=== PATIENT | male | born 1960 | race Caucasian/White ===

== ENCOUNTER → 2020-12-22 06:58 | Outpatient (CLI) | payer BC, SELFPAY ==
[2020-12-22 19:24] LABS: SARS-CoV-2 RNA PCR Negative
== END ==
PROVIDERS: PCP Internal Medicine; Visit Provider Internal Medicine
DX: R68.89 Other general symptoms and signs (principal); Z20.822 Contact with and (suspected) exposure to COVID-19
CPT/HCPCS: C9803; U0003; U0005

== ENCOUNTER 2021-02-24 08:18 | Outpatient (CLI) | payer BC, SELFPAY ==
--- NOTE | 2021-02-24 08:30 | ECG_ITS ---
Measurements Intervals Johnson Rate: 66 P: 40 TN: 176 QRS: 6 QRSD: 101 T: 16 QT: 373 QTc: 393 Interpretive Statements SINUS RHYTHM BORDERLINE R WAVE PROGRESSION, ANTERIOR LEADS BASELINE ARTIFACT- I, II, III, AVR, AVL BORDERLINE ECG Electronically Signed On 02-24-2021 8:43:42 CDT by Evin Forrester D.O.
[2021-02-24 08:49] LABS: Anion Gap 7 mmol/L (8-16); Blood Urea Nitrogen 21 mg/dL (9-20); Calcium 9.9 mg/dL (8.4-10.2); Carbon Dioxide 32 mmol/L (22-30); Chloride 98 mmol/L (98-107); Estimated Glomerular Filt Rate > 60; Glucose 110 mg/dL (75-110); Potassium 4.4 mmol/L (3.4-5.0); Sodium 137 mmol/L (137-145)
== END 2021-02-24 08:19 | disposition home or self-care (01) ==
LOC: ANHSURGERY 08:21
PROVIDERS: Anesthesiology; PCP Internal Medicine; Visit Provider Orthopaedic Surgery
DX: I10 Essential (primary) hypertension (principal); Z01.818 Encounter for other preprocedural examination; Z79.899 Other long term (current) drug therapy; R94.31 Abnormal electrocardiogram [ECG] [EKG]
CPT/HCPCS: 36415; 80048; 93005

== ENCOUNTER 2021-02-28 01:05 | Day surgery (SDC) | payer BC, SELFPAY ==
[2021-02-23 15:33] VITALS: BMI 31.1
--- NOTE | 2021-02-27 10:15 | WPDANESEPPF ---
Anes - Initial Pre Proc Eval Procedure: Operation Date: 02/28/21 10:30 Proposed Procedures p Left Shoulder Arthroscopic Rotator Cuff Repair, Proceed as Indicated - Eran Tello MD Date/Time: 02/27/21 10:15 Surgeon: Eran Tello MD Pre Op Diagnosis: left rotator cuff tear Patient Data Age: 60 Gender: M Height: 1.83 m Weight: 104.33 kg Allergies Allergy/AdvReac Type Severity Reaction Status Date / Time iodine Allergy Mild Rash Verified 02/28/21 08:54 Home Medications Medication Instructions Recorded Confirmed Type hydrochlorothiazide 25 mg tablet 25 mg PO DAILY 09/12/20 02/28/21 History olmesartan 40 mg tablet 40 mg PO DAILY 09/12/20 02/28/21 History Patient hx anesthesia problems: none Family hx anesthesia problems: none PMFSH Past Medical History Medical History (Updated 02/27/21 @ 10:15 by Efrain Youssef DO) Hypertension ISSAC (obstructive sleep apnea) CPAP Surgical History Surgical History (Updated 09/12/20 @ 15:18 by Elena Washington) H/O skin graft (~1981) RT leg History of appendectomy (~1975) History of back surgery (~1981) History of shoulder surgery (~1979) LT History of shoulder surgery (~1984) RT History of tympanoplasty (~1997) Family History Family History (Updated 09/12/20 @ 15:20 by Elena Washington) Father Arthritis Malignant neoplasm of prostate Social History Social History (Updated 09/12/20 @ 15:20 by Elena Washington) Years smoked: 20 Smoking status: Never smoker Alcohol intake: current Substance use: never Last use: 1994 Living arrangements: with family Spiritual care concerns: No Anes - Eval Final PreProcedure Day of Procedure 02/27/21 10:15 Patient weight: obese Heart: regular rate and rhythm Lungs: clear to auscultation and normal air movement Airway: Mallampati scale class III Neurological: alert and oriented Last oral intake: >/= 8 hours ASA classification: III Emergent: no Anesthetic plan: proceed Anesthesia type and monitoring: general ETT and standard monitoring Informed Consent: The patient's anesthetic plan and its attendant risks and benefits were discussed with the patient/family/POA. Questions were solicited and answers provided to the satisfaction of the patient/family/POA.
--- NOTE | 2021-02-27 10:16 | WPDANESPNB ---
Anes - Peripheral Nerve Block Date/Time: 02/27/21 10:16 I have discussed with the patient/family/POA the placement of a peripheral nerve block for post-operative pain management, including associated risks, benefits, complications, and side effects. Alternative methods of post-operative analgesia were detailed. Questions were solicited and answers provided to the satisfaction of the patient/family/POA. Time-Out: A pre-procedural Time-Out was completed immediately before starting the procedure and confirmed: Patient Identification, Site, Procedure, Patient Position and the Availability of Requisite Equipment. Clinical Indications: Acute post-operative pain management requested by the operative surgeon. Nerve Block Insertion Note Anes-nerve block: interscalene left Patient position: supine Skin prep: chlorhexidine Needle: 22 gauge, stimulating, insulated echogenic needle. Needle length: 50 mm Technique: ultrasound Injectate: bupivacaine 0.5% with epi 5 mcg/ml (30cc- no epi) Observations: tolerated well Complications: none Procedure start time:: 1020 Procedure end time:: 1024
[2021-02-28] VITALS (7 sets, daily range): BP systolic 100–128; BP diastolic 69–76; PULSE 59–71; RESP 12–18; TEMP 36.2; O2SAT 99–100; BMI 28.5
[2021-02-28] MEDS: LACTATED RINGERS 1,000 ML 30 ML IV CONT ×2 (09:11→14:10)
[2021-02-28] MEDS: ACETAMINOPHEN 500 MG TABLET 1000 MG PO (09:12)
[2021-02-28] MEDS: KETOROLAC 15 MG/ML VIAL (*BKC) IV PUSH (09:12)
--- NOTE | 2021-02-28 10:27 | SUR.PREOP ---
NOTIFIED ALBIN RANGE AIDE REGARDING SMALL LT THUMB SKIN TEAR,
--- NOTE | 2021-02-28 10:30 | WPDHPUPDATE1 ---
History and Physical Update Update Date/Time: 02/28/21 10:30 Procedure: Left arthroscopic rotator cuff repair and proceed as indicated. History and Physical has been reviewed, including an updated exam of the patient. There are NO changes in the patient's condition. Risks, benefits, and alternatives have been discussed and questions answered. Patient agrees to proceed with procedure.
[2021-02-28] MEDS: ceFAZolin 2 GM/D5W 50 ML 2 GM/50 ML BAG IVPB (10:35)
--- NOTE | 2021-02-28 14:25 | W.PM.PROC2 ---
Procedure Note - Detailed Date of Procedure 02/28/21 Pre-op Diagnosis left rotator cuff tear Post-op Diagnosis other (1. Left rotator cuff tear 2. Subacromial impingement 4. Degenerative labral tear]) Procedure Performed 1. Arthroscopic rotator cuff repair 2. Arthroscopic subacromial decompression 3. Arthroscopic labral debridement Surgeon Eran Tello MD Doll Wig Hackler Deborah Durham PA-C Anesthesia general and regional ( interscalene block) Description of Procedure Physician seed laboratory assistant, Deborah Durham PA-C, required for surgery; including patient positioning, draping, arthroscopic camera operation, maintaining instrument position,[ suture retrieval,] wound closure, and dressing and sling placement. Preoperative antibiotics were given. An interscalene block was administered in the preoperative area. The patient was bought brought to the operating room. A general anesthetic was administered. The patient was carefully positioned in the lateral decubitus position. The head and neck were carefully positioned. The non operative extremity was also carefully positioned. The shoulder was prepped and draped in the usual sterile fashion. Examination was performed. Standard posterior and anterior arthroscopic portals were established. Inflow achieved with the arthroscopic pump using saline and epinephrine. The glenohumeral joint was carefully inspected. there were mild degenerative changes on the glenoid and humerus. The previous Hill-Sachs defect was rather small. Posterior rotator cuff was intact. The subscapularis showed mild partial-thickness splitting. Posterior labrum was quite degenerative and torn. This required debridement. The biceps tendon and anchor were normal. The previous bone block repair of the anterior glenoid appeared to be partially absorbed into the anterior capsule which was thickened. The capsule had a mild capsulitis and some hypertrophic tissue. The supraspinatus was torn and mildly retracted. The infraspinatus was intact. Attention was turned to the subacromial space. A complete bursectomy was performed. Bursa was rather thickened with scar consistent with previous surgery and long-standing rotator cuff impingement disease. A modest acromioplasty was performed. The tear configuration was carefully assessed. Fibers from the posterior cuff were still attached as they wrapped along the anterior lateral footprint. The tear itself was in some sense more medial through the tendon tissue. The tear was narrow but somewhat U shaped. There was delamination. Deeper tissues were more lateral than the superficial tissues. Both the anterior supraspinatus and the infraspinatus were quite robust. Two tunnels were placed anterior and posterior. The ArthroTunneler technique was utilized. The medial drill holes were placed just at the articular margin to minimize tension on the repair. Three sutures were passed through each tunnel. All sutures were then passed through the cuff tissue. A rip stop configuration was performed. Care was taken to minimize tension on the supraspinatus which was not very mobile. A separate pass was taken through the deep tissue and the superficial tissue. Finally, the more superficial bursal tendon was closed over with a separate margin convergence [id number] suture. The tendon appeared quite anatomic and was not under significant tension at the conclusion of the repair. The arthroscopic instruments were removed. The wounds were closed with 3-0 Monocryl subcuticular suture and steri strips. There were no complications. A sling was applied and the patient brought to the recovery room. Estimated Blood Loss -20.0 Pathology none sent Complications No immediate complications Condition stable Disposition PACU
== END 2021-02-28 15:50 | disposition home or self-care (01) ==
PROVIDERS: PCP Internal Medicine; Visit Provider Orthopaedic Surgery
PROC: (CPT 29805; principal; 2021-02-28 10:30)
DX: M75.120 Complete rotator cuff tear or rupture of unspecified shoulder, not specified as traumatic (principal); G89.18 Other acute postprocedural pain; M75.42 Impingement syndrome of left shoulder; M75.82 Other shoulder lesions, left shoulder; I10 Essential (primary) hypertension; G47.33 Obstructive sleep apnea (adult) (pediatric); E66.9 Obesity, unspecified; Z68.28 Body mass index [BMI] 28.0-28.9, adult
CPT/HCPCS: 29827; 29826; 64415; 36415; 80048; 93005; A4565; A9270; J0690; J1100; J1170; J1885; J2250; J2370; J2405; J2704; J2710; J3010; J7120

== ENCOUNTER 2022-01-02 01:15 | Day surgery (SDC) | payer BC, SELFPAY ==
[2021-12-19 14:36] VITALS: BMI 31.6
[2022-01-02 07:23] VITALS: BP 128/74; PULSE 76; RESP 16; TEMP 36.9; O2SAT 99; BMI 31.0
[2022-01-02] MEDS: LACTATED RINGERS 1,000 ML 150 ML IV CONT (07:35)
--- NOTE | 2022-01-02 08:04 | P.PNAN_ITS ---
Anes - Initial Pre Proc Eval Procedure: Operation Date: 01/02/22 08:30 Proposed Procedures p Screening Colonoscopy - Doug Farmer MD Date/Time: 01/02/22 08:04 Surgeon: Doug Farmer MD Pre Op Diagnosis: neoplasm screening Patient Data Age: 61 Gender: M Height: 1.83 m Weight: 103.8 kg Last Vital Signs Temp 36.9 C 01/02/22 07:23 Pulse 76 01/02/22 07:23 Resp 16 01/02/22 07:23 BP 128/74 01/02/22 07:23 Pulse Ox 99 01/02/22 07:23 O2 Del Method Room Air 01/02/22 07:23 Allergies Allergy/AdvReac Type Severity Reaction Status Date / Time iodine Allergy Mild Rash Verified 01/02/22 07:22 Home Medications Medication Instructions Recorded Confirmed Type hydrochlorothiazide 25 mg tablet 25 mg PO DAILY 09/12/20 01/02/22 History olmesartan 40 mg tablet 40 mg PO DAILY 09/12/20 01/02/22 History Patient hx anesthesia problems: none Family hx anesthesia problems: none Results Review: All pre-operative results and documents have been reviewed as part of the pre- operative evaluation. [facility] Past Medical History Medical History Hypertension ISSAC (obstructive sleep apnea) CPAP Surgical History Surgical History H/O skin graft (~1981) RT leg History of appendectomy (~1975) History of back surgery (~1981) History of repair of left rotator cuff (~02/28/21) with Subacromial Decompression and Labral Debridement History of shoulder surgery (~1979) LT History of shoulder surgery (~1984) RT History of tympanoplasty (~1997) Family History Family History Father Arthritis Malignant neoplasm of prostate Social History Social History Years smoked: 20 Smoking status: Former smoker Alcohol intake: current Alcohol use details: 15-20 drinks per week Substance use: never Substance use type: does not use Last use: 1994 Living arrangements: with family Spiritual care concerns: No Anes - Eval Final PreProcedure Day of Procedure 01/02/22 08:04 Patient weight: obese Heart: regular rate and rhythm Lungs: clear to auscultation Airway: Mallampati scale class III Neurological: alert and oriented Last oral intake: >/= 8 hours ASA classification: III Anesthetic plan: proceed Anesthesia type and monitoring: general GIVS and standard monitoring Results Review: All pre-operative results and documents have been reviewed as part of the pre- operative evaluation. Informed Consent: The patient's anesthetic plan and its attendant risks and benefits were discussed with the patient/family/POA. Questions were solicited and answers provided to the satisfaction of the patient/family/POA.
--- NOTE | 2022-01-02 08:14 | PM.HPGS ---
History of Present Illness History of Present Illness Consent: Risks, benefits, and alternatives have been discussed and questions answered. Patient agrees to proceed with procedure. Chief complaint: neoplasm screening Narrative: Pawel Almonte Jr. is a 61 year old male here for screening colonoscopy, last time was 10 years ago Review of Systems Constitutional: Constitutional: Denies headache(s) and Denies weakness Eyes: Eyes: Denies blurry vision ENT: Reports Normal hearing present, Denies headache(s) and Denies neck pain Cardiovascular: Cardiovascular: Denies chest pain and Denies dyspnea Respiratory: Respiratory: Denies dyspnea Gastrointestinal: Gastrointestinal: Reports no additional gastrointestinal complaints Genitourinary: Genitourinary: Denies dysuria Musculoskeletal: Musculoskeletal: Denies neck pain Integumentary/Breasts: Skin/Breast: Denies dry skin Neurologic: Reports Normal hearing present, Denies headache(s) and Denies weakness Psychiatric: Psychiatric: Denies anxiety Endocrine: Endocrine: Denies change in body appearance Hematologic/Lymphatic: Hematologic/Lymphatic: Denies easy bleeding Allergic/Immunologic: Allergic/Immunologic: Denies urticaria [facility] Past Medical History Medical History (Updated 01/02/22 @ 08:15 by Doug Farmer MD) Colon cancer screening Hypertension ISSAC (obstructive sleep apnea) CPAP Surgical History Surgical History H/O skin graft (~1981) RT leg History of appendectomy (~1975) History of back surgery (~1981) History of repair of left rotator cuff (~02/28/21) with Subacromial Decompression and Labral Debridement History of shoulder surgery (~1979) LT History of shoulder surgery (~1984) RT History of tympanoplasty (~1997) Family History Family History Father Arthritis Malignant neoplasm of prostate Social History Social History Years smoked: 20 Smoking status: Former smoker Alcohol intake: current Alcohol use details: 15-20 drinks per week Substance use: never Substance use type: does not use Last use: 1994 Living arrangements: with family Spiritual care concerns: No Meds Home Medications and Allergies Home Medications Medication Instructions Recorded Confirmed Type hydrochlorothiazide 25 mg tablet 25 mg PO DAILY 09/12/20 01/02/22 History olmesartan 40 mg tablet 40 mg PO DAILY 09/12/20 01/02/22 History Allergies Allergy/AdvReac Type Severity Reaction Status Date / Time iodine Allergy Mild Rash Verified 01/02/22 07:22 Vital Signs Vital Signs - 24 hr 01/02/22 07:23 Temperature 98.4 F Pulse Rate 76 Respiratory Rate 16 Blood Pressure 128/74 Pulse Oximetry 99 Oxygen Delivery Room Air Exam Const: General: comfortable and no acute distress HENMT: General nose exam: Normal nares present Eyes: General: appearance normal, both eyes and all related structures Resp: Auscultation: clear to auscultation bilaterally Cardio: Rate: regular rate GI: Inspection: non-distended GI Palp: Yes Soft to palpation Skin: General skin exam: normal color Neuro: General: gait normal Speech: normal speech Extrem: General: normal to inspection Psych: Mental Status: mental status grossly normal Assessment and Plan Assessment and plan (1) Colon cancer screening: Code(s): Z12.11 - Encounter for screening for malignant neoplasm of colon Status: Acute Assessment and Plan: colonoscopy
[2022-01-02 08:37] VITALS: BP 107/68; PULSE 73; RESP 19; O2SAT 96
[2022-01-02 08:47] VITALS: BP 100/65; PULSE 73; RESP 19; O2SAT 98
[2022-01-02 08:57] VITALS: BP 117/75; PULSE 69; RESP 16; O2SAT 96
== END 2022-01-02 09:09 | disposition home or self-care (01) ==
PROVIDERS: PCP Internal Medicine; Visit Provider Internal Medicine Gastroenterology
PROC: 0DJD8ZZ Inspection of Lower Intestinal Tract, Via Natural or Artificial Opening Endoscopic (ICD-10-PCS; CPT 45378; principal; 2022-01-02 08:30)
DX: Z12.11 Encounter for screening for malignant neoplasm of colon (principal); K57.30 Diverticulosis of large intestine without perforation or abscess without bleeding; K64.8 Other hemorrhoids; I10 Essential (primary) hypertension; G47.33 Obstructive sleep apnea (adult) (pediatric); Z87.891 Personal history of nicotine dependence; E66.9 Obesity, unspecified; Z68.31 Body mass index [BMI] 31.0-31.9, adult
CPT/HCPCS: 45378; J2704; J7120

== ENCOUNTER 2022-06-08 09:15 | Outpatient (CLI) | payer BC, SELFPAY ==
--- NOTE | ~2022-06-08 | XR_ITS ---
EXAMINATION: XR hand LT min 3V DATE: 06/08/2022 09:45 INDICATION: Left hand pain. TECHNIQUE: 3 views of left hand were obtained. COMPARISON: None. FINDINGS: There is hyperextension of third and fourth proximal interphalangeal joints. No fracture. T here is moderate osteoarthritis of first carpometacarpal joint and first-third metacarpophalangeal ryan ints and mild osteoarthritis of most of the interphalangeal joints. IMPRESSION: 1. Polyarticular osteoarthritis. Reviewed, dictated and finalized at location A.
--- NOTE | ~2022-06-08 | XR_ITS ---
EXAMINATION: XR hand RT min 3V DATE: 06/08/2022 09:45 INDICATION: Chronic right hand pain. TECHNIQUE: 3 views of right hand were obtained. COMPARISON: None. FINDINGS: There is mild hyperextension of third and fourth proximal interphalangeal joints. No fractu re. There is mild osteoarthritis of triscaphe joint, moderate osteoarthritis of first carpometacarpal joint and third metacarpophalangeal joint, and mild osteoarthritis of second metacarpophalangeal jacques nt and most of the interphalangeal joints. IMPRESSION: 1. Polyarticular osteoarthritis. Reviewed, dictated and finalized at location A.
[2022-06-08 10:02] LABS: CRP 2.6 mg/dL (<1.0)
[2022-06-08 10:03] LABS: Rheumatoid Factor < 8.6 IU/ML (<12)
[2022-06-08 10:39] LABS: Erythrocyte Sedimentation Rate 55 mm/hr (0-20)
== END 2022-06-08 09:16 | disposition home or self-care (01) ==
LOC: ANHLAB 09:17
PROVIDERS: PCP Internal Medicine; Visit Provider Internal Medicine
DX: M19.041 Primary osteoarthritis, right hand (principal); M19.042 Primary osteoarthritis, left hand; E79.0 Hyperuricemia without signs of inflammatory arthritis and tophaceous disease
CPT/HCPCS: 36415; 73130; 85652; 86038; 86140; 86430

== ENCOUNTER → 2022-11-06 09:50 | Outpatient (CLI) | payer BC, SELFPAY ==
--- NOTE | ~2022-11-06 | MR_ITS ---
MRI of the left hand CLINICAL HISTORY: Metacarpophalangeal joint pain TECHNIQUE: Axial T1-weighted, T1 fat-sat, and T2 fat-sat images, coronal T1-weighted and T2 fat-sat i mages, and sagittal T1-weighted and T2 fat-sat images were performed. Following intravenous administr ation of 20 cc MultiHance gadolinium, T1-weighted fat-sat imaging was performed in the axial, coronal , and sagittal planes. FINDINGS: Aside from focal subchondral cystic change at the base of the first metacarpal, bone marrow signals are otherwise unremarkable. No fracture or bone marrow edema. No evidence to suggest osteomy elitis. There is moderate degenerative change at the first carpal metacarpal joint, and at the first metacarpophalangeal joint. There is additional moderate degenerative change at the second and third m etacarpophalangeal joints, with osteophytic spurring present. Remaining joints are preserved. No sign ificant joint effusion identified. Collateral ligaments and the hand appear intact. Flexor and extensor tendons are intact. Intrinsic musculature of the hand is unremarkable. No mass le talib or fluid collection evident. No suspicious postcontrast enhancement evident. IMPRESSION: Moderate osteoarthritis of the first carpometacarpal joint, and first, second, and third metacarpopha langeal joints. Reviewed, dictated and finalized at location . IMPRESSION: Moderate osteoarthritis of the first carpometacarpal joint, and first, second, and third metacarpophalangeal joints.
--- NOTE | ~2022-11-06 | MR_ITS ---
MRI of the right hand CLINICAL HISTORY: Metacarpophalangeal joint pain TECHNIQUE: Axial T1-weighted and T2 fat-sat and T1 fat-sat images, coronal T1-weighted and T2 fat-sat images, and sagittal T1-weighted and T2 fat-sat images were performed. Following intravenous adminis tration of 20 cc MultiHance gadolinium, T1-weighted fat-sat imaging was performed in the axial, coron al, and sagittal planes. FINDINGS: Bone marrow signals are unremarkable. No fracture or bone marrow edema evident. No evidence for osteitis. There is mild to moderate degenerative change at the first carpal metacarpal joint. Re maining joint spaces are preserved throughout the hand. No joint effusion evident. There is collatera l ligaments throughout the hand appear intact. Flexor and extensor tendons are intact. There is injection of minimal soft tissue swelling of the thi rd and fourth digits, nonspecific. Intrinsic musculature of the hand appears unremarkable. No definit e abnormal postcontrast enhancement identified. IMPRESSION: Mild nonspecific soft tissue edema of the third and fourth digits. [id number] degenerative change at the first carpal metacarpal joint. Reviewed, dictated and finalized at location . IMPRESSION: Mild nonspecific soft tissue edema of the third and fourth digits. [id number] degenerative change at the first carpal metacarpal joint.
== END ==
PROVIDERS: PCP Internal Medicine
DX: M19.041 Primary osteoarthritis, right hand (principal); M19.042 Primary osteoarthritis, left hand
CPT/HCPCS: 73220; A9577

== ENCOUNTER 2022-11-18 13:44 | Emergency (ER) | payer BC, SELFPAY ==
[2022-11-18 13:53] VITALS: BP 155/90; PULSE 80; RESP 16; TEMP 36.8; O2SAT 99
--- NOTE | 2022-11-18 14:18 | ED.URI ---
HPI - URI/Sore Throat General Chief Complaint: Upper Respiratory Infection Stated Complaint: sinus pressure, congestion Time Seen by Provider: 11/18/22 14:04 Source: patient Mode of arrival: ambulatory Limitations: no limitations History of Present Illness HPI Narrative: Patient presents today with a 2 day history of sinus pressure with green discharge, nasal congestion, cough, postnasal drip, mild sore throat. Denies fever or shortness of breath. He has been taking NyQuil and Mucinex without much relief. Patient is scheduled for shoulder surgery in 5 days. Related Data Home Medications Medication Instructions Recorded Confirmed hydrochlorothiazide 25 mg tablet 25 mg PO DAILY 09/12/20 11/18/22 olmesartan 40 mg tablet 40 mg PO DAILY 09/12/20 11/18/22 colchicine 0.6 mg capsule 0.6 mg PO DAILY 05/23/22 11/18/22 allopurinol 100 mg tablet 100 mg PO DAILY 11/01/22 11/18/22 tadalafil 5 mg tablet 5 mg PO DAILY 11/01/22 11/18/22 Allergies Allergy/AdvReac Type Severity Reaction Status Date / Time iodine Allergy Mild Rash Verified 11/18/22 13:50 Review of Systems Review of Systems: CONSTITUTIONAL: Denies body aches, fever, chills, or sweats. EYES: Denies visual changes, redness, or discharge. ENT: Denies rhinorrhea, or otalgia.+ nasal congestion, postnasal drip, sore throat, sinus pressure CARDIOVASCULAR: Denies chest pain, palpitations, or edema. RESPIRATORY: Denies dyspnea.+ cough GASTROINTESTINAL: Denies abdominal pain, nausea, vomiting, or diarrhea. GENITOURINARY: Denies dysuria or hematuria. SKIN: Denies rash, itching, or wounds. MUSCULOSKELETAL: Denies back pain, joint pain, or myalgia. NEUROLOGIC: Denies headache, numbness, tingling, or weakness. PSYCH: Denies depression or anxiety. [facility] Past Medical History Medical History Bulging disc Colon cancer screening Gout Hypertension ISSAC (obstructive sleep apnea) CPAP Surgical History Surgical History H/O skin graft (~1981) RT leg History of appendectomy (~1975) History of back surgery (~1981) History of carpal tunnel release of both wrists History of decompression of both ulnar nerves History of repair of left rotator cuff (~02/28/21) with Subacromial Decompression and Labral Debridement History of shoulder surgery (~1979) LT History of shoulder surgery (~1984) RT History of tympanoplasty (~1997) Family History Family History Father Arthritis Malignant neoplasm of prostate Social History Social History Years smoked: 20 Smoking status: Former smoker Alcohol intake: current Alcohol use details: 15-20 drinks per week Substance use: never Substance use type: does not use Last use: 1994 Lack of Transportation: No Lack of Food: Never True Current Housing: I Have Housing Concerned About Future Housing: No Difficulty Paying Gas/Electric Bills: No Difficulty Paying for Meds: No Currently Unemployed: No Education: Associate Degree Difficulty w/ Childcare or Family Care: No Living arrangements: with family Spiritual care concerns: No Comments At time of signature, I have reviewed and agree with nursing past medical, surgical, social and family history unless otherwise noted. Please see nursing chart for further information. There is no relevant family history pertinent to the presenting complaint Exam Narrative: GENERAL: Mildly ill-appearing, well-nourished, and in no acute distress. HEAD: Normocephalic, atraumatic. EYES: EOMI. No redness or drainage. Conjunctivae normal. ENT: Mucous membranes pink and moist. Nares congested with green nasal discharge. No rhinorrhea. TMs normal bilaterally. Throat normal. Uvula midline. NECK: Normal AROM. Supple. No lymphadenopathy.
== END 2022-11-18 14:37 | disposition home or self-care (01) ==
PROVIDERS: Emergency Provider Nurse Practitioner; PCP Internal Medicine
DX: J01.00 Acute maxillary sinusitis, unspecified (principal); I10 Essential (primary) hypertension; Z87.891 Personal history of nicotine dependence
CPT/HCPCS: 99213; G0463

== ENCOUNTER 2022-11-21 08:50 | Outpatient (CLI) | payer BC, SELFPAY ==
--- NOTE | 2022-11-21 09:14 | ECG_ITS ---
Measurements Intervals [place] Rate: 70 P: 26 [place]: 185 QRS: -11 QRSD: 93 T: 21 QT: 386 QTc: 418 Interpretive Statements SINUS RHYTHM COMPARED TO ECG 02/24/2021 08:34:12 NO SIGNIFICANT CHANGES Electronically Signed On 11-21-2022 18:06:48 CDT by Maria A Dale M.D.
[2022-11-21 11:25] LABS: Anion Gap 7 mmol/L (8-16); Blood Urea Nitrogen 19 mg/dL (9-20); Carbon Dioxide 31 mmol/L (22-30); Chloride 98 mmol/L (98-107); Estimated Glomerular Filt Rate > 60; Glucose 115 mg/dL (65-110); Potassium 3.7 mmol/L (3.4-5.0); Sodium 136 mmol/L (137-145)
== END 2022-11-21 08:51 | disposition home or self-care (01) ==
LOC: ANHSURGERY 08:53
PROVIDERS: Anesthesiology; PCP Internal Medicine; Visit Provider Orthopaedic Surgery
DX: Z01.818 Encounter for other preprocedural examination (principal); I10 Essential (primary) hypertension
CPT/HCPCS: 36415; 80048; 93005

== ENCOUNTER 2022-11-23 01:45 | Day surgery (SDC) | payer BC, SELFPAY ==
[2022-11-19 10:03] VITALS: BMI 31.8
--- NOTE | 2022-11-19 10:09 | PC.NURSE ---
Report to the Outpatient Waiting Room, entrance under the green pavilion located off [facility], at time 10:00 on date 11/23/22. Planned Procedure Time: 12:00. Time changes happen often and if your time is changed the preop area will call you the afternoon before. - You and your visitor will be asked to self-screen and do not enter if you have any COVID symptoms. - A mask is optional within the hospital at this time. Patients may have clear liquids (water, carbonated beverages, clear teas, apple juice) until 3 hours prior to surgery with a maximum of 20 ounces. - No food from midnight until time of surgery Take the following medications with a SIP of water the morning of surgery: ANTIBIOTIC (IF STILL TAKING) DO NOT STOP ANY OF YOUR OTHER PRESCRIPTION MEDICATIONS PRIOR TO SURGERY EXCEPT THE FOLLOWING Medications to discontinue per physician: N/A Date to take last dose: N/A Please no make-up, nail sami, hairspray, perfume, deodorant, or body powder the day of surgery. No jewelry (including any body piercings) or valuables the day of surgery, leave them at home. Please take a shower or bath the night before, or the morning of, surgery with an antibacterial soap. Wear comfortable, loose fitting clothing. - Jewelry must be removed prior to entering the operating room. Rings and piercings that are not removed may be cut off. - The hospital will not accept responsibility for valuables. - Please leave all valuables, including medications, at home the day of surgery. If you are going home after surgery, a licensed emergency vehicle driver must drive you home. - NO public transportation without another adult if you receive anesthesia. - We recommend that an adult stay with you for 24 hours following discharge. - We also recommend that you do not drive, make important decision, drink alcoholic beverages, or take any drugs that were not prescribed by your health care provider for at least 24 hours after your discharge time. Follow any additional instructions given to you from your surgeon. If you or anyone in your household have experienced Covid symptoms in the past week, please notify your surgeon or the nurse liaison at the phone number below for possible testing. Telephone instructions given to PT - JUVENTINO GILLIS and asked if any additional questions and then verbalized understanding. Patient advised to call surgeon office or pre surgery nurse liaison [phone] if any additional questions.
--- NOTE | 2022-11-22 10:38 | WPDANESEPPF ---
Anes - Initial Pre Proc Eval Procedure: Operation Date: 11/23/22 12:00 Proposed Procedures p Right Shoulder Arthroscopic Rotator Cuff Repair, Biceps Tenodesis, Labral Debridement with Chondroplasty, proceed as indicated - Eran Tello MD Date/Time: 11/22/22 10:38 Surgeon: Eran Tello MD Pre Op Diagnosis: Rt Shoulder Rot Cuff Tear, Bicep Tendinopathy Patient Data Age: 62 Gender: M Height: 1.83 m Weight: 106.6 kg Allergies Allergy/AdvReac Type Severity Reaction Status Date / Time iodine Allergy Mild Rash Verified 11/23/22 10:54 Home Medications Medication Instructions Recorded Confirmed Type hydrochlorothiazide 25 mg tablet 25 mg PO DAILY 09/12/20 11/19/22 History olmesartan 40 mg tablet 40 mg PO DAILY 09/12/20 11/19/22 History colchicine 0.6 mg capsule 0.6 mg PO DAILY 05/23/22 11/19/22 History allopurinol 100 mg tablet 100 mg PO DAILY 11/01/22 11/19/22 History tadalafil 5 mg tablet 5 mg PO DAILY PRN Erectile 11/01/22 11/19/22 History Dysfunction amoxicillin 875 mg-potassium 1 tablet PO Q12H 10 days #20 tabs 11/18/22 11/19/22 Rx clavulanate 125 mg tablet Patient hx anesthesia problems: none Family hx anesthesia problems: none Results Review: All pre-operative results and documents have been reviewed as part of the pre-operative evaluation. [facility] Past Medical History Medical History Bulging disc Colon cancer screening Gout Hypertension ISSAC (obstructive sleep apnea) CPAP Surgical History Surgical History H/O skin graft (~1981) RT leg History of appendectomy (~1975) History of back surgery (~1981) History of carpal tunnel release of both wrists History of decompression of both ulnar nerves History of repair of left rotator cuff (~02/28/21) with Subacromial Decompression and Labral Debridement History of shoulder surgery (~1979) LT History of shoulder surgery (~1984) RT History of tympanoplasty (~1997) Family History Family History Father Arthritis Malignant neoplasm of prostate Social History Social History Years smoked: 20 Smoking status: Former smoker Tobacco type: cigarettes Smoking end date: 08/12/89 Alcohol intake: current Drinks per week: 20 Alcohol use details: 15-20 drinks per week Substance use: never Substance use type: does not use Last use: 1994 Lack of Transportation: No Lack of Food: Never True Current Housing: I Have Housing Concerned About Future Housing: No Difficulty Paying Gas/Electric Bills: No Difficulty Paying for Meds: No Currently Unemployed: No Education: Associate Degree Difficulty w/ Childcare or Family Care: No Living arrangements: with family Spiritual care concerns: No Anes - Eval Final PreProcedure Day of Procedure 11/22/22 10:38 Patient weight: obese Heart: regular rate and rhythm Lungs: clear to auscultation Airway: Mallampati scale class II Neurological: alert and oriented Last oral intake: >/= 8 hours ASA classification: III Emergent: no Anesthetic plan: proceed Anesthesia type and monitoring: general ETT and standard monitoring Results Review: All pre-operative results and documents have been reviewed as part of the pre-operative evaluation. Informed Consent: The patient's anesthetic plan and its attendant risks and benefits were discussed with the patient/family/POA. Questions were solicited and answers provided to the satisfaction of the patient/family/POA.
[2022-11-23] VITALS (7 sets, daily range): BP systolic 101–125; BP diastolic 55–74; PULSE 70–76; RESP 14–17; TEMP 36.4; O2SAT 92–100
[2022-11-23] MEDS: KETOROLAC 15 MG/ML VIAL (*BKC) IV PUSH (10:45)
[2022-11-23] MEDS: LACTATED RINGERS 1,000 ML 30 ML IV CONT ×2 (10:45→16:48)
[2022-11-23] MEDS: ACETAMINOPHEN 500 MG TABLET 1000 MG PO (10:45)
--- NOTE | 2022-11-23 11:08 | WPDANESPNB ---
Anes - Peripheral Nerve Block Date/Time: 11/23/22 11:08 I have discussed with the patient/family/POA the placement of a peripheral nerve block for post-operative pain management, including associated risks, benefits, complications, and side effects. Alternative methods of post-operative analgesia were detailed. Questions were solicited and answers provided to the satisfaction of the patient/family/POA. Time-Out: A pre-procedural Time-Out was completed immediately before starting the procedure and confirmed: Patient Identification, Site, Procedure, Patient Position and the Availability of Requisite Equipment. Clinical Indications: Acute post-operative pain management requested by the operative surgeon. Nerve Block Insertion Note Anes-nerve block: interscalene right Patient position: supine Skin prep: chlorhexidine Needle: 22 gauge, stimulating, insulated echogenic needle. Needle length: 50 mm Technique: ultrasound Injectate: bupivacaine 0.5% with epi 5 mcg/ml (30cc- no epi) Observations: tolerated well Complications: none Procedure start time:: 1232 Procedure end time:: 1234
--- NOTE | 2022-11-23 12:32 | WPDHPUPDATE1 ---
History and Physical Update Update Date/Time: 11/23/22 12:32 History and Physical has been reviewed, including an updated exam of the patient. There are NO changes in the patient's condition. Risks, benefits, and alternatives have been discussed and questions answered. Patient agrees to proceed with procedure.
--- NOTE | 2022-11-23 16:49 | W.PM.PROC2 ---
Procedure Note - Detailed Date of Procedure 11/23/22 Pre-op Diagnosis Rt Shoulder Rot Cuff Tear, Bicep Tendinopathy Post-op Diagnosis Other (1. Full-thickness rotator cuff tear of the supraspinatus and subscapularis. 2. Degenerative arthritis 3. Biceps tendinopathy 4. History of open rotator cuff repair) Procedure Performed Right shoulder 1. Arthroscopic rotator cuff repair including the supraspinatus and subscapularis 2. Arthroscopic biceps tenotomy and labral debridement. 3. Subacromial decompression Surgeon Eran Tello MD Anesthesia General and Regional Indications Severe persistent shoulder pain and weakness. History rotator cuff repair performed open, many years ago. Findings Re-tear of the previous supraspinatus tear. Medium to large size after debridement. Upper half of the subscapularis tendon torn. Superficial attachment prevented significant retraction. Extensive scar tissue in the subacromial bursa. This required careful debridement. Subscapularis repair was accomplished with 3 bone anchors in a double row fashion with the mattress and the more distal tendon. The labrum was debrided and the biceps tenotomy performed. The supraspinatus was repaired with 4 anchor double row fixation and margin convergence suture posteriorly. Tendon quality was reasonably good and reduction to the anatomic footprint without undue tension. Moderate spurring at the anterolateral acromion concerning for external impingement, treated with subacromial decompression. Description of Procedure Interscalene block was performed. Preoperative antibiotics were given. The patient was carefully placed in the beach chair position. Head and neck were padded and carefully position. The shoulder was prepped and draped in the usual sterile fashion with an articulating arm quintana. Standard posterior arthroscopic portal was established. Inflow obtained with the saline pump. The glenohumeral joint showed moderate degenerative changes with significant thinning of most of the cartilage on the humeral head. The glenoid cartilage was better except for some anterior and anterior superior wear. This was consistent with his imbalance shoulder due to the subscapularis tear. Biceps tendon was released in preparation for subscapularis repair. There were fibers of the supraspinatus attached thus the final repair for the subscapularis was performed from an articular position to allow for visualization and maintenance of the anterior supraspinatus. The subscapularis was released slightly at the rotator interval to aid in anchor placement. A FiberTak anchor was placed in the more medial and distal portion of the footprint. A horizontal mattress suture was placed. A 2nd FiberTak anchor was placed more proximally. Another horizontal mattress suture was placed here. Previously a luggage tag suture was placed at the apex corner of the subscapularis. These 3 suture limbs were brought to a more lateral based anchor for an excellent reduction in a double row fashion. After thorough and meticulous debridement of the sub deltoid scarring, the configuration of the supraspinatus was carefully assessed. It behaves like an L-shaped tear which translated more posteriorly. It was elected to place 2 medial row FiberTak anchors with horizontal mattress sutures. Posterior anchor sutures converged the posterior margin. A 2nd margin convergence suture was placed more medial. The other suture limbs were passed through the tendon. This suture allowed for splitting into 2 sutures which could then be Kelley crossed across the tendon applying a very nice even compression on the footprint. The final construct was anatomic in appearance without undue tension. The lateral row was secured with 2 SwiveLock anchors. The arthroscopic instruments removed. The arthroscopic portals were closed with 3-0 Monocryl suture and Steri-Strips. The patient was placed in a sling and extubated. Brought to the recovery r
== END 2022-11-23 18:50 | disposition home or self-care (01) ==
PROVIDERS: PCP Internal Medicine; Visit Provider Orthopaedic Surgery
PROC: (CPT 29805; principal; 2022-11-23 12:00)
DX: M75.101 Unspecified rotator cuff tear or rupture of right shoulder, not specified as traumatic (principal); M19.011 Primary osteoarthritis, right shoulder; M75.21 Bicipital tendinitis, right shoulder; G89.18 Other acute postprocedural pain; I10 Essential (primary) hypertension; G47.33 Obstructive sleep apnea (adult) (pediatric); M10.9 Gout, unspecified; Z87.891 Personal history of nicotine dependence; E66.9 Obesity, unspecified; Z68.30 Body mass index [BMI] 30.0-30.9, adult
CPT/HCPCS: 29827; 29826; 64415; 36415; 80048; 93005; A4565; A9270; C1713; J0690; J1100; J1170; J1885; J2250; J2370; J2405; J2704; J2710; J3010; J7120

== ENCOUNTER 2023-01-11 06:41 | Outpatient (CLI) | payer BC, SELFPAY ==
[2023-01-11 09:34] LABS: Alanine Aminotransferase 70 U/L (6-50); Albumin Level 4.3 g/dL (3.5-5.1); Alkaline Phosphatase 72 U/L (38-126); Aspartate Amino Transferase 51 U/L (17-59); Bilirubin,Total 1.2 mg/dL (0.2-1.3)
== END 2023-01-11 06:42 | disposition home or self-care (01) ==
LOC: ANHLAB 06:43
PROVIDERS: PCP Internal Medicine; Visit Provider Internal Medicine Hematology & Oncology
DX: R79.89 Other specified abnormal findings of blood chemistry (principal); M06.4 Inflammatory polyarthropathy
CPT/HCPCS: 36415; 80076

== ENCOUNTER 2023-03-26 08:00 | Outpatient (NON) | payer BC, SELFPAY | END 2023-03-26 08:01 | disposition home or self-care (01) | LOC: ANHLAB 03-27 12:37 | PROVIDERS: PCP Internal Medicine; Visit Provider Nurse Practitioner | DX: C43.59 Malignant melanoma of other part of trunk (principal) | CPT/HCPCS: 88305 ==

== ENCOUNTER 2023-04-08 02:48 | Day surgery (SDC) | payer BC, SELFPAY ==
--- NOTE | 2023-04-05 08:42 | PC.NURSE ---
Report to the Outpatient Waiting Room, entrance under the green pavilion located off [facility], at time 0900 on date 04/08/23. Planned Procedure Time: 1200. NUC [facility] AT 1000. Time changes happen often and if your time is changed the preop area will call you the afternoon before. - You and your visitor will be asked to self-screen and do not enter if you have any COVID symptoms. - A mask is optional within the hospital at this time. Patients may have clear liquids (water, carbonated beverages, clear teas, apple juice) until 3 hours prior to surgery with a maximum of 20 ounces. - No food from midnight until time of surgery Take the following medications with a SIP of water the morning of surgery: NONE DO NOT STOP ANY OF YOUR OTHER PRESCRIPTION MEDICATIONS PRIOR TO SURGERY ?EXCEPT THE FOLLOWING Medications to discontinue per physician: N/A Date to take last dose: N/A Please no make-up, nail malawian, hairspray, perfume, deodorant, or body powder the day of surgery. No jewelry (including any body piercings) or valuables the day of surgery, leave them at home. Please take a shower or bath the night before, or the morning of, surgery with an antibacterial soap. Wear comfortable, loose fitting clothing. - Jewelry must be removed prior to entering the operating room. Rings and piercings that are not removed may be cut off. - The hospital will not accept responsibility for valuables. - Please leave all valuables, including medications, at home the day of surgery. If you are going home after surgery, a licensed furniture mover driver must drive you home. - NO public transportation without another adult if you receive anesthesia. - We recommend that an adult stay with you for 24 hours following discharge. - We also recommend that you do not drive, make important decision, drink alcoholic beverages, or take any drugs that were not prescribed by your health care provider for at least 24 hours after your discharge time. Follow any additional instructions given to you from your surgeon. If you or anyone in your household have experienced Covid symptoms in the past week, please notify your surgeon or the nurse liaison at the phone number below for possible testing. Telephone instructions given to PT - JUVENTINO GILLIS and asked if any additional questions and then verbalized understanding. Patient advised to call surgeon office or pre surgery nurse liaison [phone] if any additional questions.
[2023-04-05 08:43] VITALS: BMI 30.4
[2023-04-08] VITALS (7 sets, daily range): BP systolic 123–151; BP diastolic 71–91; PULSE 59–82; RESP 12–22; TEMP 36.1–36.8; O2SAT 99–100
--- NOTE | ~2023-04-08 | NM_ITS ---
EXAMINATION: NM sentinel node w imaging DATE: 04/08/2023 11:55 INDICATION: Melanoma TECHNIQUE: 0.510 mCi Tc-99m filtered sulfur colloid was injected in two aliquots the medial and later al margins of the site of a reported melanoma resection at the posterior left shoulder. Scintigrams o f the left chest were obtained with the left arm in normal position and elevated. FINDINGS/IMPRESSION: 1. Increased activity both at the injection site and at a left axillary sentinel lymph node. Reviewed, dictated and finalized at location A.
--- NOTE | 2023-04-08 07:09 | PM.IMHP ---
H&P: HPI History of Present Illness Date/Time: 04/08/23 07:09 Chief Complaint: Melanoma left upper back Narrative: He came to see us on 03/26/2023 for skin check. He does have a family history of his mother, unknown type and brother with melanoma. A left upper back worrisome lesion was noted and shave biopsy taken. Pathology returned as melanoma. He has elected to proceed with wide excision of melanoma left upper back and sentinal node biopsy. Review of Systems Review of Systems: All systems reviewed & are unremarkable except as noted in HPI and below PMFSH Past Medical History Medical History Bulging disc Colon cancer screening Gout Hypertension ISSAC (obstructive sleep apnea) CPAP Surgical History Surgical History H/O skin graft (~1981) RT leg History of appendectomy (~1975) History of back surgery (~1981) History of carpal tunnel release of both wrists History of decompression of both ulnar nerves History of repair of left rotator cuff (~02/28/21) with Subacromial Decompression and Labral Debridement History of repair of right rotator cuff (~11/23/22) with biceps tenodesis, Labral Debridement, and Chondroplasty History of shoulder surgery (~1979) LT History of shoulder surgery (~1984) RT History of tympanoplasty (~1997) Status post right rotator cuff repair Family History Family History Father Arthritis Malignant neoplasm of prostate Social History Social History Years smoked: 20 Smoking status: Former smoker Tobacco type: cigarettes Smoking end date: 08/12/89 Alcohol intake: current Drinks per week: 20 Alcohol use details: 15-20 drinks per week Substance use: never Substance use type: does not use Last use: 1994 Lack of Transportation: No Lack of Food: Never True Current Housing: I Have Housing Concerned About Future Housing: No Difficulty Paying Gas/Electric Bills: No Difficulty Paying for Meds: No Currently Unemployed: No Education: Associate Degree Difficulty w/ Childcare or Family Care: No Living arrangements: with family Spiritual care concerns: No Meds Home Medications and Allergies Home Medications Medication Instructions Recorded Confirmed Type hydrochlorothiazide 25 mg tablet 25 mg PO DAILY 09/12/20 04/08/23 History olmesartan 40 mg tablet 40 mg PO DAILY 09/12/20 04/08/23 History allopurinol 100 mg tablet 100 mg PO DAILY 11/01/22 04/08/23 History tadalafil 5 mg tablet 5 mg PO DAILY PRN Erectile 11/01/22 04/08/23 History Dysfunction Allergies Allergy/AdvReac Type Severity Reaction Status Date / Time iodine Allergy Mild Rash Verified 04/08/23 10:34 Exam Narrative: Alert & Oriented NOD Respiratory unlabored Left upper back biopsy site healing well. No signs of infection. No hematoma. No seroma. Assessment and Plan Assessment and plan (1) Melanoma of back: Code(s): C43.59 - Malignant melanoma of other part of trunk Status: Acute Assessment and Plan: He would like to proceed with wide excision melanoma left upper back and sentinel node biopsy. Risks, benefits, alternatives were discussed in extensive detail. I want to be very realistic about the risks involved as well as expectations. NCCN guidelines discussed. Reviewed consent in detail. Discussed aftercare and what to monitor for. Made sure I answered all questions answered to satisfaction and consent obtained. Melanoma left upper back: [place] 0.51 mm Spitzoid [place] IV No ulceration Borders negative Mitosis < 1 / mm2 No lymph-vascular invasion No perineural invasion No tumor regression Pathological Stage: Pt1A, PNX, PMX (2) Family history of melanoma: Code(s): Z80.8 - Family history of malignan
--- NOTE | 2023-04-08 08:22 | WPDANESEPPF ---
Anes - Initial Pre Proc Eval Procedure: Operation Date: 04/08/23 12:00 Proposed Procedures p Excision of Melanoma Left Upper Back with [place] Lymph Node Biopsy - Kit Murdock MD Date/Time: 04/08/23 08:22 Surgeon: Kit Murdock MD Pre Op Diagnosis: melanoma Patient Data Age: 63 Gender: M Height: 1.83 m Weight: 101.7 kg Allergies Allergy/AdvReac Type Severity Reaction Status Date / Time iodine Allergy Mild Rash Verified 04/08/23 10:34 Home Medications Medication Instructions Recorded Confirmed Type hydrochlorothiazide 25 mg tablet 25 mg PO DAILY 09/12/20 04/08/23 History olmesartan 40 mg tablet 40 mg PO DAILY 09/12/20 04/08/23 History allopurinol 100 mg tablet 100 mg PO DAILY 11/01/22 04/08/23 History tadalafil 5 mg tablet 5 mg PO DAILY PRN Erectile 11/01/22 04/08/23 History Dysfunction Patient hx anesthesia problems: none Family hx anesthesia problems: none Results Review: All pre-operative results and documents have been reviewed as part of the pre-operative evaluation. [facility] Past Medical History Medical History Bulging disc Colon cancer screening Gout Hypertension ISSAC (obstructive sleep apnea) CPAP Surgical History Surgical History H/O skin graft (~1981) RT leg History of appendectomy (~1975) History of back surgery (~1981) History of carpal tunnel release of both wrists History of decompression of both ulnar nerves History of repair of left rotator cuff (~02/28/21) with Subacromial Decompression and Labral Debridement History of repair of right rotator cuff (~11/23/22) with biceps tenodesis, Labral Debridement, and Chondroplasty History of shoulder surgery (~1979) LT History of shoulder surgery (~1984) RT History of tympanoplasty (~1997) Status post right rotator cuff repair Family History Family History Father Arthritis Malignant neoplasm of prostate Social History Social History Years smoked: 20 Smoking status: Former smoker Tobacco type: cigarettes Smoking end date: 08/12/89 Alcohol intake: current Drinks per week: 20 Alcohol use details: 15-20 drinks per week Substance use: never Substance use type: does not use Last use: 1994 Lack of Transportation: No Lack of Food: Never True Current Housing: I Have Housing Concerned About Future Housing: No Difficulty Paying Gas/Electric Bills: No Difficulty Paying for Meds: No Currently Unemployed: No Education: Associate Degree Difficulty w/ Childcare or Family Care: No Living arrangements: with family Spiritual care concerns: No Anes - Eval Final PreProcedure Day of Procedure 04/08/23 08:22 Patient weight: obese Heart: regular rate and rhythm Lungs: clear to auscultation Airway: Mallampati scale class II Neurological: alert and oriented Last oral intake: >/= 8 hours ASA classification: III Emergent: no Anesthetic plan: proceed Anesthesia type and monitoring: general GIVS and standard monitoring Results Review: All pre-operative results and documents have been reviewed as part of the pre-operative evaluation. Informed Consent: The patient's anesthetic plan and its attendant risks and benefits were discussed with the patient/family/POA. Questions were solicited and answers provided to the satisfaction of the patient/family/POA.
[2023-04-08] MEDS: LACTATED RINGERS 1,000 ML 30 ML IV CONT ×2 (09:45→13:50)
[2023-04-08 10:22] LABS: Anion Gap 6 mmol/L (8-16); Blood Urea Nitrogen 27 mg/dL (9-20); Calcium 9.3 mg/dL (8.4-10.2); Carbon Dioxide 30 mmol/L (22-30); Chloride 107 mmol/L (98-107); Estimated CRCL calculation 90 ml/min; Estimated Glomerular Filt Rate > 60; Glucose 112 mg/dL (65-110); Potassium 4.7 mmol/L (3.4-5.0); Sodium 143 mmol/L (137-145)
--- NOTE | 2023-04-08 12:11 | WPDHPUPDATE1 ---
History and Physical Update Update Date/Time: 04/08/23 12:11 History and Physical has been reviewed, including an updated exam of the patient. There are NO changes in the patient's condition. Risks, benefits, and alternatives have been discussed and questions answered. Patient agrees to proceed with procedure.
[2023-04-08] MEDS: ceFAZolin 2 GM/D5W 50 ML 2 GM/50 ML BAG IVPB (12:30)
--- NOTE | 2023-04-08 13:09 | W.PM.PROC2 ---
Procedure Note - Detailed Date of Procedure 04/08/23 Pre-op Diagnosis melanoma Post-op Diagnosis Same Procedure Performed 1. Wide excision melanoma left upper back 7cm excision with 9cm closure 2. Left axillary sentinel lymph node biopsy x 2 Surgeon Kit Murdock MD Anesthesia General Findings Two left axillary nodes identified. Background < 10% of reading. No worrisome features. Melanoma excision with 2cm margins. Description of Procedure Preoperatively the risks, benefits, alternatives were discussed in extensive detail. I want him to be very realistic about the risks involved as well as expectations. We discussed NCCN criteria and how he was deviating from this. This was outlined in great detail so he was well informed. Discussed aftercare. What monitor for. All questions answered to their satisfaction his use accompanied by his . Consent obtained. He was marked in the preoperative holding area with her verification. He was taken to the operating room. Anesthesia provided by anesthesiology. Placed in the right lateral decubitus position with left side up. Prepped and draped in a standard sterile fashion. I began at the sentinel node site 1st. 1% lidocaine and 0.25% Marcaine with epinephrine was used anesthetize locally. I had identified the location with the probe and a 15 blade used to make an incision. I continued dissection down using the probe as guidance until the 1st sentinel node was identified. This was removed without difficulty. A 2nd node was identified and also removed. The background was well less than 10%. Verified strict hemostasis. No evidence of neurovascular or other structure injury. This was closed with 2-0 Vicryl followed by 3-0 Monocryl in a running subcuticular 4-0 Monocryl and tissue glue. I had marked out the back with 2 cm margins. 1% lidocaine and 0.25% Marcaine with epinephrine was used anesthetize locally. A 15 blade used to excise the ellipse. Dissection was continued to the fascia this was completely excised at that level. Copious irrigated with saline and closed in many layers to obliterate space with 2-0 Vicryl followed by 3-0 strata fix and vertical mattress 3-0 nylon. Dressings were placed. He was woken taken to the PACU without difficulty. All instrument sponge counts were correct at the end of the case. Estimated Blood Loss 10 Drains No Packing No Pathology Yes (1. Left upper back melanoma 2. Left axillary SLN x 2) Complications No immediate complications Condition Stable Disposition PACU
== END 2023-04-08 15:08 | disposition home or self-care (01) ==
PROVIDERS: Anesthesiology; PCP Internal Medicine; Visit Provider Surgery Plastic and Reconstructive Surgery
PROC: (CPT 11606; principal; 2023-04-08 12:00)
DX: C43.59 Malignant melanoma of other part of trunk (principal); Z80.8 Family history of malignant neoplasm of other organs or systems; I10 Essential (primary) hypertension; G47.33 Obstructive sleep apnea (adult) (pediatric); Z87.891 Personal history of nicotine dependence
CPT/HCPCS: 11606; 12034; 38500; 36415; 78195; 80048; 88305; 88307; 88342; A9520; J0690; J1100; J2405; J2704; J3010; J7120

== ENCOUNTER 2023-04-25 10:19 | Outpatient (CLI) | payer BC, SELFPAY ==
[2023-04-25 10:54] LABS: Basophils Percent Auto 0.7 % (0.2-1.2); Eosinophils Absolute Auto 0.2 K/mm3 (0-0.3); Eosinophils Percent Auto 4.6 % (0-4.4); Hematocrit 50.8 % (42.0-52.0); Hemoglobin 17.9 g/dL (14.0-18.0); Immature Granulocyte Absolute 0.02 K/mm3 (0.00-0.031); Immature Granulocyte Percent A 0.5 % (0-0.5); Lymphocytes Absolute Auto 1.26 K/mm3 (0.9-3.2); Lymphocytes Percent Auto 30.7 % (18.3-44.2); Mean Corpuscular HGB Conc 35.2 g/dl (32-36); Mean Corpuscular Hemoglobin 34.1 pg (26-34); Mean Corpuscular Volume 96.8 fl (80-100); Mean Platelet Volume 9.7 fl (7.4-10.4); Monocytes Absolute Auto 0.4 K/mm3 (0.1-0.6); Monocytes Percent Auto 9.2 % (2.6-8.5); Neutrophils Absolute Auto 2.2 K/mm3 (1.3-6.7); Neutrophils Percent Auto 54.3 % (45.5-73.1); Platelet Count Result 143 k/mm3 (150-375); Red Blood Count 5.25 M/mm3 (4.6-6.20); Red Cell Distribution Width 12.5 % (11.5-14.5); White Blood Count 4.1 K/mm3 (4.5-10.0)
[2023-04-25 11:46] LABS: Alanine Aminotransferase 71 U/L (6-50); Albumin Level 4.5 g/dL (3.5-5.1); Alkaline Phosphatase 77 U/L (38-126); Anion Gap 8 mmol/L (8-16); Aspartate Amino Transferase 60 U/L (17-59); Bilirubin,Total 0.7 mg/dL (0.2-1.3); Blood Urea Nitrogen 26 mg/dL (9-20); Calcium 9.3 mg/dL (8.4-10.2); Carbon Dioxide 27 mmol/L (22-30); Chloride 104 mmol/L (98-107); Estimated Glomerular Filt Rate > 60; Glucose 102 mg/dL (65-110); Lactate Dehydrogenase 193 U/L (120-246); Potassium 4.1 mmol/L (3.4-5.0); Sodium 139 mmol/L (137-145)
== END 2023-04-25 10:20 | disposition home or self-care (01) ==
PROVIDERS: PCP Internal Medicine; Visit Provider Internal Medicine Hematology & Oncology
DX: C43.59 Malignant melanoma of other part of trunk (principal)
CPT/HCPCS: 36415; 80053; 83615; 85025

== ENCOUNTER 2023-11-21 11:44 | Outpatient (CLI) | payer MEDICARE, BC, SELFPAY ==
[2023-11-21 12:11] LABS: Basophils Percent Auto 0.7 % (0.2-1.2); Eosinophils Absolute Auto 0.2 K/mm3 (0-0.3); Hematocrit 42.4 % (42.0-52.0); Hemoglobin 14.9 g/dL (14.0-18.0); Immature Granulocyte Absolute 0.03 K/mm3 (0.00-0.031); Immature Granulocyte Percent A 0.5 % (0-0.5); Lymphocytes Absolute Auto 1.72 K/mm3 (0.9-3.2); Mean Corpuscular HGB Conc 35.1 g/dl (32-36); Mean Corpuscular Hemoglobin 33.9 pg (26-34); Mean Corpuscular Volume 96.6 fl (80-100); Mean Platelet Volume 9.1 fl (7.4-10.4); Monocytes Absolute Auto 0.5 K/mm3 (0.1-0.6); Monocytes Percent Auto 8.5 % (2.6-8.5); Neutrophils Absolute Auto 3.3 K/mm3 (1.3-6.7); Neutrophils Percent Auto 57.3 % (45.5-73.1); Platelet Count Result 194 k/mm3 (150-375); Red Blood Count 4.39 M/mm3 (4.6-6.20); Red Cell Distribution Width 12.3 % (11.5-14.5); White Blood Count 5.7 K/mm3 (4.5-10.0)
[2023-11-21 12:52] LABS: Alanine Aminotransferase 36 U/L (6-50); Albumin Level 4.6 g/dL (3.5-5.1); Alkaline Phosphatase 72 U/L (38-126); Anion Gap 7 mmol/L (4-12); Aspartate Amino Transferase 35 U/L (17-59); Blood Urea Nitrogen 23 mg/dL (9-20); Calcium 9.3 mg/dL (8.4-10.2); Carbon Dioxide 28 mmol/L (22-30); Chloride 106 mmol/L (98-107); Estimated Glomerular Filt Rate > 60; Glucose 130 mg/dL (65-110); Lactate Dehydrogenase 175 U/L (120-246); Potassium 4.1 mmol/L (3.4-5.0); Sodium 141 mmol/L (137-145)
== END 2023-11-21 11:45 | disposition home or self-care (01) ==
PROVIDERS: PCP Internal Medicine; Visit Provider Internal Medicine Hematology & Oncology
DX: C43.59 Malignant melanoma of other part of trunk (principal)
CPT/HCPCS: 36415; 80053; 83615; 85025

== ENCOUNTER 2024-04-20 08:32 | Outpatient (CLI) | payer MEDICARE, BC, SELFPAY ==
--- NOTE | ~2024-04-20 | XR_ITS ---
EXAMINATION: XR hip RT 2V w AP pelvis DATE: 04/20/2024 09:19 INDICATION: Right hip pain. TECHNIQUE: An anteroposterior view of the pelvis and 2 views of right hip were obtained. COMPARISON: None. FINDINGS: Bone alignment is normal. No fracture. There is a 17 mm sclerotic lesion in proximal left f emur. There is mild osteoarthritis of the hips. There is moderate lumbar spondylosis. IMPRESSION: 1. Mild osteoarthritis of the hips. 2. 16 mm sclerotic lesion in proximal left femur, which may be a benign bone island or metastatic dis ease. Consider bone scan. Reviewed, dictated and finalized at location A. IMPRESSION: 1. Mild osteoarthritis of the hips. 2. 16 mm sclerotic lesion in proximal left femur, which may be a benign bone is land or metastatic disease. Consider bone scan.
== END 2024-04-20 08:33 | disposition home or self-care (01) ==
PROVIDERS: PCP Orthopaedic Surgery; Visit Provider Orthopaedic Surgery
DX: M16.11 Unilateral primary osteoarthritis, right hip (principal)
CPT/HCPCS: 73502

== ENCOUNTER 2024-05-26 11:15 | Outpatient (CLI) | payer MEDICARE, SELFPAY ==
[2024-05-26 11:34] LABS: Basophils Absolute Auto 0.1 K/mm3 (0.0-0.1); Basophils Percent Auto 0.9 % (0.2-1.2); Eosinophils Absolute Auto 0.1 K/mm3 (0-0.3); Eosinophils Percent Auto 2.3 % (0-4.4); Hematocrit 40.4 % (42.0-52.0); Immature Granulocyte Absolute 0.03 K/mm3 (0.00-0.031); Immature Granulocyte Percent A 0.5 % (0-0.5); Lymphocytes Percent Auto 27.7 % (18.3-44.2); Mean Corpuscular HGB Conc 34.7 g/dl (32-36); Mean Corpuscular Hemoglobin 33.9 pg (26-34); Mean Corpuscular Volume 97.8 fl (80-100); Mean Platelet Volume 9.5 fl (7.4-10.4); Monocytes Absolute Auto 0.6 K/mm3 (0.1-0.6); Monocytes Percent Auto 10.6 % (2.6-8.5); Neutrophils Absolute Auto 3.4 K/mm3 (1.3-6.7); Platelet Count Result 197 k/mm3 (150-375); Red Blood Count 4.13 M/mm3 (4.6-6.20); Red Cell Distribution Width 12.5 % (11.5-14.5); White Blood Count 5.8 K/mm3 (4.5-10.0)
[2024-05-26 11:39] LABS: Blood Urea Nitrogen 20 mg/dL (8-26); Carbon Dioxide 26 mmol/L (22-30); Chloride 101 mmol/L (98-109); Estimated Glomerular Filt Rate > 60; Glucose 98 mg/dL (70-105); Ionized Calcium (POC) 1.13 mmol/L (1.11-1.31); Potassium 3.8 mmol/L (3.5-4.9); Sodium 138 mmol/L (138-146)
[2024-05-26 12:23] LABS: Alanine Aminotransferase 44 U/L (6-50); Albumin Level 4.5 g/dL (3.5-5.1); Alkaline Phosphatase 71 U/L (38-126); Anion Gap 8 mmol/L (4-12); Aspartate Amino Transferase 39 U/L (17-59); Bilirubin,Total 1.1 mg/dL (0.2-1.3); Blood Urea Nitrogen 21 mg/dL (9-20); Calcium 9.1 mg/dL (8.4-10.2); Carbon Dioxide 29 mmol/L (22-30); Chloride 100 mmol/L (98-107); Estimated Glomerular Filt Rate > 60; Glucose 101 mg/dL (65-110); Potassium 3.9 mmol/L (3.4-5.0); Sodium 137 mmol/L (137-145)
== END 2024-05-26 11:16 | disposition home or self-care (01) ==
LOC: ANHLAB 11:20
PROVIDERS: PCP Internal Medicine; Visit Provider Internal Medicine Hematology & Oncology
DX: Z85.820 Personal history of malignant melanoma of skin (principal)
CPT/HCPCS: 36415; 80047; 80053; 85025

== ENCOUNTER 2024-10-14 08:33 | Outpatient (CLI) | payer MEDICARE, SELFPAY ==
--- NOTE | ~2024-10-14 | XR_ITS ---
XR hip RT 2V w AP pelvis Ordering provider: Eran Tello MD History: . M16.11 - Unilateral primary osteoarthritis, right hip . Comparison: None. FINDINGS: BONES: No acute fracture or dislocation. HIP JOINT SPACES: Bilateral hip moderate osteoarthritic changes. SACROILIAC JOINT SPACES/LUMBAR SPINE: The sacroiliac joint spaces are normal. Mild degenerative cannon es of the visualized lower lumbar spine. PUBIC SYMPHYSIS: Normal. SOFT TISSUES: Normal. IMPRESSION: No acute osseous abnormality pelvis and right hip. Reviewed, dictated and finalized at location A. K DISPATCHER
== END 2024-10-14 08:34 | disposition home or self-care (01) ==
PROVIDERS: PCP Internal Medicine; Visit Provider Orthopaedic Surgery
DX: M16.11 Unilateral primary osteoarthritis, right hip (principal)
CPT/HCPCS: 73502

== ENCOUNTER 2025-07-19 15:12 | Outpatient (CLI) | payer MEDICARE, SELFPAY ==
--- NOTE | ~2025-07-19 | XR_ITS ---
EXAMINATION: XR foot LT 2V, 07/19/2025 15:35 CALL [employer] HISTORY: PAIN x 2 months, no inj, no surg COMPARISON: No comparisons available. Findings: No acute fracture or malalignment. Large calcaneal spur Soft tissues unremarkable. Impression: No acute fracture or malalignment. Reviewed, dictated and finalized at location P. [employer] SUPERVISOR Impression: No acute fracture or malalignment.
== END 2025-07-19 15:13 | disposition home or self-care (01) ==
LOC: GOSHIMG 15:23
PROVIDERS: PCP Internal Medicine; Visit Provider Internal Medicine
DX: M79.672 Pain in left foot (principal); I10 Essential (primary) hypertension; E78.2 Mixed hyperlipidemia
CPT/HCPCS: 73620